=== PATIENT | male | born 1965 | race African-American/Black ===

== ENCOUNTER 2016-10-16 16:47 | Emergency (ER) | payer SELFPAY ==
[~2016-10-16] VITALS: Ht 167.6 cm; Wt 59.0 kg
[2016-10-16 17:30] VITALS: BP 118/65
== END 2016-10-16 18:50 | disposition left against medical advice (07) ==
LOC: ER 18:16
DX: F10.129 Alcohol abuse with intoxication, unspecified (principal); I10 Essential (primary) hypertension